=== PATIENT | male | born 1960 | race Hispanic/Latino ===

== ENCOUNTER 2021-06-19 16:17 | Emergency (ER) | payer SELFPAY ==
[~2021-06-19] VITALS: Ht 167.6 cm; Wt 81.6 kg
[2021-06-19] MEDS ORDERED: PROBIOTIC & AC1 EACH PO (16:37)
[2021-06-19] MEDS ORDERED: CLEOCIN HCL300 MG PO (16:37)
[2021-06-19] MEDS ORDERED: ACETAMINOPHEN500 MG PO (16:37)
[2021-06-19] MEDS ORDERED: DOXYCYCLINE HY100 MG PO (16:37)
== END 2021-06-19 16:51 | disposition home or self-care (01) ==
LOC: FSED 16:21
DX: L03.116 Cellulitis of left lower limb (principal)
CPT/HCPCS: 99283